=== PATIENT | male | born 1990 | race Two or more races ===

== ENCOUNTER → 2019-10-29 | Outpatient (CLI) | payer OTHER | END | disposition home or self-care (01) | LOC: CFH 09:58 | PROVIDERS: ATTEND Internal Medicine Cardiovascular Disease | DX: I25.10 Atherosclerotic heart disease of native coronary artery without angina pectoris (principal); I10 Essential (primary) hypertension; I25.2 Old myocardial infarction; E78.5 Hyperlipidemia, unspecified | CPT/HCPCS: 93306 ==

== ENCOUNTER 2020-04-25 14:22 | Emergency (ER) | payer OTHER ==
[~2020-04-25] VITALS: Ht 182.9 cm; Wt 107.6 kg
--- NOTE | 2020-04-25 14:31 | NUR ---
ASSET MANAGEMENT COORDINATOR NOTE: EKG TAKEN ON ARRIVAL IN TRIAGE, REVIEWED BY EDMD OG, PER EDMD EKG IS NOT INDICATIVE OF STEMI.
--- NOTE | 2020-04-25 14:43 | NUR ---
PT CAME IN CO OF SOB, CHEST PAIN X 4-5 DAYS. PT HAS HX OF SC IN 2016. PT DESCRIBES PAIN IF SOMONE WAS SITTING ON HIS CHEST. EKG COMPLETE. PT RESTING IN GURNEY. CONNECTED TO MONITORING EQUIPMENT. AWAITING
[2020-04-25 16:08] VITALS: BP 126/80
--- NOTE | 2020-04-25 16:09 | NUR ---
PT AMBULATED TO BATHROOM. RE CONNECTED TO MONITORING EQUIPMENT
[2020-04-25] MEDS ORDERED: ASPIRIN 81 MG TABLET CHEW ONE (16:21)
[2020-04-25] MEDS ORDERED: ASPIRIN 81 MG TABLET CHEW PO ONE (16:30)
[2020-04-25 16:38] LABS: BASOPHILS # (AUTO) 0.03 x10^3/uL (0-0.1); BASOPHILS % (AUTO) 1 % (0-1); EOSINOPHILS # (AUTO) 0.07 x10^3/uL (0-0.4); EOSINOPHILS % (AUTO) 1 % (1-7); LYMPHOCYTES # (AUTO) 1.95 x10^3/uL (1-3.4); LYMPHOCYTES % (AUTO) 30 % (22-44); MD NO; MEAN CORPUSCULAR HEMOGLOBIN 28.5 pg (27.5-34.5); MEAN CORPUSCULAR HGB CONC 32.9 g/dL (33.2-36.2); MEAN CORPUSCULAR VOLUME 86.5 fL (81-97); MEAN PLATELET VOLUME 8.4 fL (7.4-10.4); MONOCYTES # (AUTO) 0.44 x10^3/uL (0.2-0.8); MONOCYTES % (AUTO) 7 % (2-9); NEUTROPHILS # (AUTO) 3.94 x10^3/uL (1.8-6.8); NEUTROPHILS % (AUTO) 61 % (42-75); PLATELET COUNT 208 x10^3/uL (130-400); RED BLOOD COUNT 5.37 x10^6/uL (4.38-5.82); RED CELL DISTRIBUTION WIDTH 13.4 % (9.4-14.8)
[2020-04-25 16:42] LABS: ALBUMIN 3.8 g/dL (3.4-5.0); ANION GAP 3 mmol/L (5-15); CALCIUM 8.8 mg/dL (8.5-10.1); CHLORIDE 109 mmol/L (98-107); CREATININE 0.88 mg/dL (0.7-1.3)
[2020-04-25 16:46] LABS: ALANINE AMINOTRANSFERASE 52 U/L (12-78); ALKALINE PHOSPHATASE 47 U/L (45-117); BILIRUBIN,TOTAL 0.5 mg/dL (0.2-1.0); TOTAL PROTEIN 7.5 g/dL (6.4-8.2); TROPONIN I < 0.015 ng/mL (0.000-0.045)
[2020-04-25] MEDS ORDERED: SODIUM CHLORIDE FLUSH 10ML SYR IVF ONE (17:00)
== END 2020-04-25 17:32 | disposition home or self-care (01) ==
LOC: ED 14:49
DX: R07.89 Other chest pain (principal); R94.31 Abnormal electrocardiogram [ECG] [EKG]; I25.2 Old myocardial infarction; I25.10 Atherosclerotic heart disease of native coronary artery without angina pectoris
CPT/HCPCS: 36415; 71045; 80053; 84484; 85025; 93005; 99285